=== PATIENT | female | born 1990 | race Hispanic/Latino ===

== ENCOUNTER 2021-06-21 23:16 | Emergency (ER) | payer SELFPAY ==
--- NOTE | 2021-06-22 01:48 | Emergency Department Report ---
ED General Adult HPI - General Chief complaint: Back Pain/Injury Stated complaint: back pain Time Seen by Provider: 06/22/21 01:34 Source: patient Mode of arrival: Ambulatory Limitations: No Limitations - History of Present Illness Initial comments: 30-year-old female patient presents to the emergency department with complaints of lower back pain with associated nausea starting yesterday. Pain is localized to the midline, nonradiating, no identifiable exacerbating relieving factors. No preceding fall, trauma, or injury. Last menstrual cycle was May 28. Denies fever, chills, vaginal bleeding, vaginal discharge, hematuria, painful urination. Denies all other complaints at this time. - Related Data Previous Rx's Medication Instructions Recorded Last Taken Type Ondansetron [Zofran Odt] 4 mg PO Q4H #20 tab.rapdis 06/22/21 Unknown Rx Sulfamethoxazole/Trimethoprim 1 each PO BID 14 Days tablet 06/22/21 Unknown Rx [Bactrim DS TAB] Allergies Allergy/AdvReac Type Severity Reaction Status Date / Time No Known Allergies Allergy Unverified 06/21/21 23:37 ED Review of Systems ROS: Stated complaint: BACK/STOMACH PAIN Other details as noted in HPI Other: GENERAL: Negative for fever, chills, weight change, anorexia, fatigue. ENT: Negative for ear pain, difficulty hearing, sore throat, nasal congestion, epistaxis. CARDIOVASCULAR: Negative for chest pain, palpitations, lower extremity swelling. PULMONARY: Negative for cough, dyspnea, wheezing, orthopnea, cyanosis. GASTROINTESTINAL: Positive for nausea. MUSCULOSKELETAL: Positive for back pain. NEUROLOGICAL: Negative for headache, seizure, syncope, paresthesias, weakness. INTEGUMENTARY: Negative for erythema, rash, diaphoresis, laceration, ecchymosis. HEMATOLOGICAL: Negative for hemoptysis, hematemesis, hematochezia, hematuria. PSYCHIATRIC: Negative for hallucinations, suicidal ideation, homicidal ideation, anxiety, depression. ED Past Medical Hx - Past Medical History Previous Medical History?: Yes - Medications Home Medications: Home Medications Medication Instructions Recorded Confirmed Last Taken Type Ondansetron [Zofran Odt] 4 mg PO Q4H #20 tab.rapdis 06/22/21 Unknown Rx Sulfamethoxazole/Trimethoprim 1 each PO BID 14 Days tablet 06/22/21 Unknown Rx [Bactrim DS TAB] ED Physical Exam - General Limitations: No Limitations - Other Other exam information: General: Awake and alert. No acute distress. Sleeping comfortably upon entering the room. Head: Atraumatic, normocephalic. Eyes: EOMI. Pupils are equal and round. Normal sclera and conjunctiva. ENT: Oral mucosa is moist. Normal pharyngeal exam. Neck: Supple. No lymphadenopathy. Pulmonary: No respiratory distress. Clear to auscultation bilaterally. Cardiac: Regular rate and rhythm. Pulses are palpable and equal bilaterally. No lower extremity cyanosis or edema. Skin: Warm and dry. No rashes. Abdomen: Soft, non-tender, non-protuberant. No guarding, rigidity, or rebound. Bowel sounds are normal. No organomegaly or masses noted. Back: Normal alignment. Diffuse lower back pain with bilateral paraspinal tenderness. Extremities: Symmetrical. Full range of motion intact. Neurological: Alert and oriented, appropriately interactive, no focal deficits. Psych: Cooperative. Appropriate mood and affect. Speech is evenly metered. Thoughts are logically construed. ED Course Vital Signs 06/21/21 23:39 Temperature 98.4 F Pulse Rate 75 Respiratory 19 Rate Blood Pressure 188/104 O2 Sat by Pulse 99 Oximetry ED Medical Decision Making - Medical Decision Making Differential diagnosis including but not limited to: pyelonephritis, nephrolithiasis, urinary tract infection, pelvic inflammatory disease, related complication On reevaluation, patient remains stable. She is sleeping comfortably in her chair. test is negative. Urinalysis shows significant 50 WBCs. Urine culture pending. Patient is afebrile without abdominal pain/tenderness or vaginal discharge to suggest pelvic inflammatory disease. Patient will be treated for acute uncomplicated pyelonephritis in the setting of back pain, nausea, and pyuria. No clinical indication for emergent imaging and/or hospital admission at this time. Patient will be discharged home with prescription for Bactrim and Zofran, and referred to primary care provider for close outpatient follow-up. Patient expressed understanding and is agreeable to plan of care. Strict return precautions provided. Repeat exam is unremarkable and benign. History, exam, diagnostic testing, and current condition do not suggest worrisome pathology to warrant further testing, continued ED treatment, admission, or surgical evaluation at this point. Given the low probability of a significant medical illness, it would be more likely to result in harm than benefit to perform further testing at this stage. Discussed findings, presumptive diagnosis, need for follow-up and specific signs/symptoms that should prompt immediate return to the emergency department. Instructions were explained in detail to the patient in addition to giving written discharge information. Patient expressed understanding and was given the opportunity to ask questions, all of which were satisfactorily answered prior to discharge home. Critical care attestation.: If time is entered above; I have spent that time in minutes in the direct care of this critically ill patient, excluding procedure time. ED Disposition Clinical Impression: Pyelonephritis Disposition: DC- TO HOME OR SELFCARE Is pt being admited?: No Does the pt Need Aspirin: No Condition: Stable Instructions: Abdominal Pain (ED), Pyelonephritis, Adult, [id number] Additional Instructions: Take Tylenol every 4 hours and Motrin every 8 hours as needed for pain. Take Bactrim with food as directed. Increase your dietary intake of probiotic rich foods while taking this medication. Take Zofran as directed for nausea/vomiting. Rest. Drink plenty of fluids. Follow-up with primary care provider this week. Call today to schedule an appointment. See referral information below. Return to the emergency department immediately for new or worsening symptoms. Specifically, return to the emergency department immediately for fever, vomiting, dehydration, worsening pain, decreased urine output, or any other concerns. Prescriptions: Sulfamethoxazole/Trimethoprim [Bactrim DS TAB] 1 each PO BID 14 Days tablet Ondansetron [Zofran Odt] 4 mg PO Q4H #20 tab.rapdis Referrals: YULIET ROSADO MD [Primary Care Provider] - 3-5 Days AUSTIN RICHARDS MD [Staff Physician] - 3-5 Days [facility] [Provider Group] - 3-5 Days MEGAN NELSON MD [Staff Physician] - 3-5 Days Forms: Work/School Release Form(ED) Time of Disposition: 06:56
[2021-06-22 05:34] LABS: HCG Qualitative,Urine Negative (Negative)
[2021-06-22 05:37] LABS: Mucus,Urine FEW /HPF
[2021-06-22 05:44] LABS: Bilirubin,Urine NEG (Negative); Blood,Urine NEG (Negative); Color,Urine Yellow (Yellow); Protein,Urine <15 mg/dL mg/dL (Negative); Urobilinogen,Urine < 2.0 mg/dL (<2.0)
[2021-06-22 07:35] VITALS: BP 147/95
== END 2021-06-22 07:33 | disposition home or self-care (01) ==
LOC: ED 23:16
DX: N12 Tubulo-interstitial nephritis, not specified as acute or chronic (principal)
CPT/HCPCS: 81001; 81025; 87086; 99283